=== PATIENT | female | born 1945 | race Caucasian/White ===

== ENCOUNTER → 2018-08-29 | Outpatient (CLI) | payer MEDICARE, BC ==
--- NOTE | 2018-08-29 11:17 | REP ---
Chest two views HISTORY: Emphysema Comparison: None The lungs are hyperinflated. A minimal increase in interstitial markings is present in the lungs consistent with chronic interstitial fibrosis. . Bullae are present in the upper lobes. The heart is normal in size. The pulmonary vasculature is normal in appearance. The bony structure is intact. IMPRESSION: Chronic interstitial fibrosis. Electronically Signed by Jb Bowden MD 08/29/2018 11:08 A
== END ==
LOC: M SMT 10:41
PROVIDERS: ATTEND Internal Medicine Pulmonary Disease
DX: J43.1 Panlobular emphysema (principal); R06.00 Dyspnea, unspecified

== ENCOUNTER → 2018-08-29 | Outpatient (REF) | payer MEDICARE, BC | LOC: M LAB REF 12:54 | PROVIDERS: ATTEND Internal Medicine Pulmonary Disease | DX: R06.00 Dyspnea, unspecified (principal) ==

== ENCOUNTER → 2021-09-16 | Outpatient (CLI) | payer MEDICARE, BC | LOC: M PLAIMG 08:14 | PROVIDERS: ATTEND Internal Medicine Pulmonary Disease | DX: J43.1 Panlobular emphysema (principal); J47.9 Bronchiectasis, uncomplicated ==